=== PATIENT | male | born 1940 | race Caucasian/White ===

== ENCOUNTER → 2024-04-19 08:07 | Outpatient (REF) | payer MEDICARE, OTHER, SELFPAY | LOC: DHCBC/DCA 08:07 | PROVIDERS: ATTENDING PHYSICIAN Internal Medicine Cardiovascular Disease; FAMILY PHYSICIAN Physician Assistant Medical | DX: I48.91 Unspecified atrial fibrillation (principal); R06.09 Other forms of dyspnea | CPT/HCPCS: 78452; 93017; A9500; J2785 ==

== ENCOUNTER → 2024-04-28 14:34 | Outpatient (REF) | payer MEDICARE, OTHER, SELFPAY | LOC: RCS 14:34 | PROVIDERS: ATTENDING PHYSICIAN Internal Medicine Cardiovascular Disease; FAMILY PHYSICIAN Physician Assistant Medical | DX: I48.91 Unspecified atrial fibrillation (principal); R06.09 Other forms of dyspnea | CPT/HCPCS: 93306 ==

== ENCOUNTER → 2024-05-05 06:50 | Outpatient (REF) | payer MEDICARE, OTHER, SELFPAY ==
[2024-05-05 08:04] LABS: NT-proBNP 1480 pg/ml
== END ==
LOC: RSP 06:50
PROVIDERS: ATTENDING PHYSICIAN Internal Medicine Cardiovascular Disease; FAMILY PHYSICIAN Physician Assistant Medical
DX: R06.09 Other forms of dyspnea (principal); Z87.891 Personal history of nicotine dependence; I48.91 Unspecified atrial fibrillation
CPT/HCPCS: 94727; 94729; 36415; 71046; 83880; 88738; 94060

== ENCOUNTER 2024-06-17 07:00 | Day surgery (SDC) | payer MEDICARE, OTHER, SELFPAY | END 2024-06-17 10:38 | disposition home or self-care (01) | LOC: CATH 07:00 | PROVIDERS: ATTENDING PHYSICIAN Internal Medicine Cardiovascular Disease; FAMILY PHYSICIAN Physician Assistant Medical; OTHER PHYSICIAN Internal Medicine Cardiovascular Disease | DX: I48.91 Unspecified atrial fibrillation (principal); I08.1 Rheumatic disorders of both mitral and tricuspid valves; Z87.891 Personal history of nicotine dependence; Z79.01 Long term (current) use of anticoagulants | CPT/HCPCS: 92960; 93005 ==

== ENCOUNTER → 2024-08-26 14:39 | Outpatient (REF) | payer MEDICARE, OTHER, SELFPAY ==
[2024-08-26 15:18] LABS: Urine Albumin 3+ (Neg - Trace); Urine Bilirubin Negative (Negative); Urine Character Slightly Cloudy (Clear); Urine Color Amber; Urine Glucose Negative (Negative); Urine Ketone 1+ (Negative); Urine Leukocyte 2+ (Negative); Urine Nitrite Negative (Negative); Urine Occult Blood 4+ (Negative); Urine Urobilinogen 1+ (Neg - 1+)
[2024-08-26 15:44] LABS: ALT (SGPT) 28 U/L (0-50); AST (SGOT) 24 U/L (17-59); Alkaline Phosphatase 84 U/L (38-126); Blood Urea Nitrogen 16 mg/dl (9-20); Calcium 10.1 mg/dl (8.4-10.2); Carbon Dioxide 32 mmol/L (22-30); Chloride 102 mmol/L (98-107); Glucose 106 mg/dl (70-99); Potassium 5.7 mmol/L (3.5-5.1); Sodium 142 mmol/L (135-145); Total Bilirubin 0.7 mg/dl (0.2-1.3); Total Protein 7.2 g/dl (6.3-8.2); eGFR > 60.00
[2024-08-26 16:14] LABS: PSA, Total - Diagnostic < 0.06 ng/ml (0.0-4.0)
[2024-08-26 16:19] LABS: Urine Red Blood Cell >100 /HPF (0-2)
== END ==
LOC: REG 14:39
PROVIDERS: ATTENDING PHYSICIAN Nurse Practitioner Family; FAMILY PHYSICIAN Physician Assistant Medical; REFERRING PHYSICIAN Specialist
DX: R31.9 Hematuria, unspecified (principal); C61 Malignant neoplasm of prostate; N41.0 Acute prostatitis
CPT/HCPCS: 36415; 80053; 81003; 81015; 84153; 87086

== ENCOUNTER → 2024-09-02 09:45 | Outpatient (REF) | payer MEDICARE, OTHER, SELFPAY ==
[2024-09-02 11:08] LABS: Hematocrit 43.9 % (39.0-52.0); Hemoglobin 14.9 g/dL (13.0-18.0); Mean Corp Hgb Conc. 33.9 g/dL (33.0-37.0); Mean Corpuscular Hgb 31.4 pg (27.0-31.0); Mean Corpuscular Volume 92.4 fL (80.0-94.0); Mean Platelet Volume 10.9 fL (7.4-10.4); Platelet Count 222 10^3/uL (130-400); Red Blood Cell Count 4.75 10^6/uL (4.70-6.10); Red Cell Dist. Width 13.2 % (11.5-14.5); White Blood Cell Count 9.1 10^3/uL (4.8-10.8)
== END ==
LOC: SDSPAT 09:45
PROVIDERS: ATTENDING PHYSICIAN Specialist; FAMILY PHYSICIAN Physician Assistant Medical
DX: Z01.818 Encounter for other preprocedural examination (principal)
CPT/HCPCS: 36415; 85027

== ENCOUNTER 2024-09-09 06:12 | Day surgery (SDC) | payer MEDICARE, OTHER, SELFPAY ==
[2024-09-02 14:05] VITALS: BMI 27.4
--- NOTE | 2024-09-02 15:46 | PTCARENOTE ---
Mary Jane in Dr. Mckee's office made aware of K 5.7.
--- NOTE | 2024-09-07 15:26 | PTCARENOTE ---
Patients 08/16 potassium 5.7- reviewed by Dr. Godoy- no additional interventions required
[2024-09-09] VITALS (13 sets, daily range): BP systolic 126–175; BP diastolic 49–99; BMI 27.4
[2024-09-09] MEDS: CYSVIEW KIT 100 MG INTRAVES (09:54)
[2024-09-09] MEDS: NORMOSOL-R/PLASMALYTE-A 1000 IV (09:57)
[2024-09-09] MEDS: SYRINGE NON-PUMP 50 ML IRRIG ×2 (11:46→11:47)
[2024-09-09] MEDS: SYRINGE NON-PUMP 50 MG IRRIG ×2 (11:46→11:47)
[2024-09-09] MEDS: SUBLIMAZE 25 MCG IV ×4 (11:55→12:24)
[2024-09-09] MEDS: Pyridium 200 MG PO (12:06)
== END 2024-09-09 16:45 | disposition home or self-care (01) ==
LOC: SDS 06:12
PROVIDERS: ATTENDING PHYSICIAN Specialist
DX: C67.8 Malignant neoplasm of overlapping sites of bladder (principal); C67.9 Malignant neoplasm of bladder, unspecified
CPT/HCPCS: 52234; 51720; 88307; A9589; J9201

== ENCOUNTER → 2024-10-24 12:17 | Outpatient (REF) | payer MEDICARE, OTHER, SELFPAY | LOC: RAD 12:17 | PROVIDERS: ATTENDING PHYSICIAN Physician Assistant Medical | DX: Z00.00 Encounter for general adult medical examination without abnormal findings (principal); M47.816 Spondylosis without myelopathy or radiculopathy, lumbar region | CPT/HCPCS: 72110 ==

== ENCOUNTER 2025-03-29 06:34 | Day surgery (SDC) | payer MEDICARE, OTHER, SELFPAY ==
[2025-03-23 14:06] VITALS: BMI 29.9
[2025-03-29] VITALS (11 sets, daily range): BP systolic 105–162; BP diastolic 58–94; BMI 29.9
[2025-03-29] MEDS: CYSVIEW KIT 100 MG INTRAVES (10:25)
[2025-03-29] MEDS: NORMOSOL-R/PLASMALYTE-A 1000 IV (10:40)
[2025-03-29] MEDS: SYRINGE NON-PUMP 50 MG IRRIG ×2 (15:14→15:16)
[2025-03-29] MEDS: SYRINGE NON-PUMP 50 ML IRRIG ×2 (15:14→15:16)
== END 2025-03-29 17:12 | disposition home or self-care (01) ==
LOC: SDS 06:34
PROVIDERS: ATTENDING PHYSICIAN Specialist
DX: N30.00 Acute cystitis without hematuria (principal); N30.20 Other chronic cystitis without hematuria
CPT/HCPCS: 52234; 51720; 88307; A9589; J9201